=== PATIENT | male | born 1975 | race Caucasian/White ===

== ENCOUNTER 2021-11-26 21:34 | Emergency (ER) | payer OTHER, SELFPAY ==
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
[2021-11-26 21:45] VITALS: BP 146/93; PULSE 72; RESP 18; TEMP 37; O2SAT 97; BMI 22.8
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
[2021-11-26] MEDS: 0.9 % Sodium Chloride 1,000 ML 999 ML IV (23:26)
[2021-11-26 23:30] LABS: MANUAL DIFF FLAG NO
[2021-11-26] MEDS: Acetaminophen 325 MG TABLET 975 MG PO (23:34)
[2021-11-26 23:35] LABS: Carbon Monoxide POC 1.4 %
[2021-11-26 23:39] LABS: Carbon Monoxide Refer to POC result
--- NOTE | 2021-11-26 23:39 | PC.NURSE ---
pt a&o, Iv placed and lab collected. medicated per jul.
[2021-11-26 23:40] LABS: Basophils Absolute Auto 0.1 X10*3/uL (0.0-0.2); Basophils Percent Auto 0.6 % (0-2); Eosinophils Absolute Auto 0.1 X10*3/uL (0.0-0.4); Eosinophils Percent Auto 0.6 % (0-4); Hematocrit 43.8 % (42.0-52.0); Hemoglobin 15.1 g/dl (14.0-18.0); Imm Gran Abs Auto 0.04 X10*3/uL (0.00-0.03); Imm Gran Pct Auto 0.4 % (0.0-0.4); Lymphocytes Absolute Auto 2.6 X10*3/uL (1.2-4.9); Mean Corpuscular HGB Conc 34.5 g/dl (31.0-36.0); Mean Corpuscular Hemoglobin 30.5 pg (27.0-33.0); Mean Corpuscular Volume 88.5 fL (80.0-98.0); Mean Platelet Volume 9.4 fL (9.4-12.4); Monocytes Absolute Auto 0.8 X10*3/uL (0.1-1.2); Neutrophils Absolute Auto 7.3 x10*3/uL (2.0-8.3); Neutrophils Percent Auto 67.4 % (45-73); Platelet Count 271 X10*3/uL (160-400); Red Blood Count 4.95 X10*6/uL (4.60-5.80); Red Cell Distribution Width 13.8 % (11.0-16.0); White Blood Count 10.9 X10*3/uL (4.8-10.8)
[2021-11-26 23:59] LABS: Anion Gap 14 (12-20); Blood Urea Nitrogen 18 mg/dL (9-16); Calcium 9.9 mg/dL (8.4-10.2); Carbon Dioxide 28 mmol/L (22-29); Chloride 99 mmol/L (96-108); Estimated Glomerular Filt Rate 59; Glucose Random 85 mg/dL (60-115); Magnesium 2.1 mg/dL (1.6-2.6); Potassium 4.2 mmol/L (3.3-5.1); Sodium 137 mmol/L (135-145)
--- NOTE | 2021-11-27 00:15 | PC.NURSE ---
pt sating in the high 90's. No sign of respiratory distress. Will review discharge instruction with pt. Notified KIRK Myles
[2021-11-27 00:24] VITALS: BP 146/87; PULSE 69; RESP 16; O2SAT 98
== END 2021-11-27 00:43 | disposition home or self-care (01) ==
PROVIDERS: Nurse Practitioner Family; Emergency Provider Emergency Medicine
DX: J68.9 Unspecified respiratory condition due to chemicals, gases, fumes and vapors (principal); Z79.899 Other long term (current) drug therapy
CPT/HCPCS: 36415; 71046; 80048; 82375; 83735; 85025; 96360; 99284